=== PATIENT | female | born 1950 | race American Indian/Alaskan Native ===

== ENCOUNTER 2022-01-04 16:21 | Observation (INO) | payer MEDICARE, OTHER ==
[2022-01-04] MEDS ORDERED: PANTOPRAZOLE 40 MG INJ IV ONE (17:07)
[2022-01-04] MEDS ORDERED: ACETAMINOPHEN 325 MG TAB PO ONE (17:07)
[2022-01-04] MEDS ORDERED: diphenhydrAMINE 50 MG/ML VIAL IV ONE (17:07)
[2022-01-04] MEDS ORDERED: METOCLOPRAMIDE 10 MG/2 ML INJ IV ONE (17:07)
--- NOTE | 2022-01-04 17:08 | Emergency Department Report ---
ED General Adult HPI - General Chief complaint: Syncope Stated complaint: I passed out Time Seen by Provider: 01/04/22 17:06 Source: patient, EMS (Verbal report received from emergency medical services. EMS documentation not available at time of chart dictation ), RN notes reviewed Mode of arrival: Stretcher Limitations: No Limitations - History of Present Illness Initial comments: The patient was evaluated in the emergency department for symptoms described in the history of present illness. He/she was evaluated in the context of the global COVID-19 pandemic, which necessitated consideration that the patient might be at risk for infection with the virus that causes COVID-19. Institutional protocols and algorithms that pertain to the evaluation of patients at risk for COVID-19 are in a state of rapid change based on information released by regulatory bodies including the CDC and federal and state organizations. These policies and algorithms were followed during the patient's care in the emergency department. Please note that these policies, procedures and recommendations changed on a rapid basis. This is a 71-year-old female, with a history of TIA, hypertension, obesity, diabetes which is diet-controlled. She presents to the department today with EMS with an EMS articulated complaint of loss of consciousness. The patient was at an outside buffet, and reportedly had a nontraumatic spontaneous loss of consciousness. EMS reports unremarkable Accu-Chek in the field, negative Delphi stroke scale, and unremarkable vital signs in the field. Patient herself endorses that she has chronic headaches, and yesterday evening, experienced a frontal and bitemporal headache, which was not sudden or thunderclap in nature, not maximal in intensity, not described as the worst headache of her life (patient reports having had a worst headache a few years ago), and went to bed. This morning, reportedly did not eat much of breakfast, and then went to buffet, and reportedly had loss of consciousness. There is no loss of vision, there is no jaw claudication. There is chronic epigastric and left upper quadrant pressure and discomfort. The patient denies travel, surgery, immobilization, DVT and pulmonary embolism risk factors. No loss of vision, no neck pain, no lower abdominal pain, no diarrhea, no urinary symptoms. Patient reports that her medications have been changed and adjusted recently by her outpatient primary c are doctor, but she does not specifically recall what medication changes have taken place. She does feel like she is back to her baseline at this time. -: Gradual Location: head, abdomen Severity scale (0 -10): 0 Worsens with: none - Related Data Home Medications Medication Instructions Recorded Confirmed Last Taken Aspirin 81 mg PO DAILY 01/04/22 01/04/22 Unknown Atorvastatin 20 mg PO DAILY 01/04/22 01/04/22 Unknown Doxazosin 8 mg PO DAILY 01/04/22 01/04/22 Unknown Plavix 75 mg PO DAILY 01/04/22 01/04/22 Unknown Telmisartan 80 mg PO DAILY 01/04/22 01/04/22 Unknown amLODIPine 50 mg PO DAILY 01/04/22 01/04/22 Unknown hydrALAZINE 50 mg PO DAILY 01/04/22 01/04/22 Unknown Allergies Allergy/AdvReac Type Severity Reaction Status Date / Time Penicillins Allergy Unknown Verified 01/04/22 16:32 ED Review of Systems ROS: Stated complaint: SYNCOPAL Other details as noted in HPI Constitutional: denies: fever Eyes: denies: eye discharge, vision change Respiratory: denies: cough Cardiovascular: chest pain, syncope Gastrointestinal: abdominal pain Genitourinary: denies: dysuria Neurological: headache. denies: weakness Hematological/Lymphatic: denies: easy bleeding ED Past Medical Hx - Medications Home Medications: Home Medications Medication Instructions Recorded Confirmed Last Taken Type Aspirin 81 mg PO DAILY 01/04/22 01/04/22 Unknown History Atorvastatin 20 mg PO DAILY 01/04/22 01/04/22 Unknown History Doxazosin 8 mg PO DAILY 01/04/22 01/04/22 Unknown History Plavix 75 mg PO DAILY 01/04/22 01/04/22 Unknown History Telmisartan 80 mg PO DAILY 01/04/22 01/04/22 Unknown History amLODIPine 50 mg PO DAILY 01/04/22 01/04/22 Unknown History hydrALAZINE 50 mg PO DAILY 01/04/22 01/04/22 Unknown History ED Physical Exam - General Limitations: No Limitations General appearance: alert, in no apparent distress, obese - Head Head exam: Present: atraumatic, normocephalic, other (There is no temporal tenderness) - Eye Eye exam: Present: normal appearance, EOMI, other (Visual acuity is intact to finger counting and color perception at a close distance.). Absent: nystagmus - ENT ENT exam: Present: normal exam, normal orophraynx, mucous membranes moist, normal external ear exam - Neck Neck exam: Present: normal inspection, full ROM. Absent: tenderness, meningismus - Respiratory Respiratory exam: Present: normal lung sounds bilaterally. Absent: respiratory distress, wheezes, rales, rhonchi, stridor, decreased breath sounds - Cardiovascular Cardiovascular Exam: Present: normal rhythm, bradycardia, normal heart sounds. Absent: tachycardia, irregular rhythm, systolic murmur, diastolic murmur, rubs, gallop - GI/Abdominal GI/Abdominal exam: Present: soft. Absent: distended, tenderness, guarding, rebound, rigid, pulsatile mass - Extremities Exam Extremities exam: Present: normal inspection, full ROM, other (2+ pulses noted in the bilateral upper and lower extremities. There is no palpable cord. negative Homans sign. Muscular compartments are soft. The pelvis is stable.). Absent: pedal edema, calf tenderness - Back Exam Back exam: Present: normal inspection. Absent: tenderness, CVA tenderness (R), CVA tenderness (L), paraspinal tenderness, vertebral tenderness - Neurological Exam Neurological exam: Present: alert (There is no past-pointing. There is no pronator drift. There is normal [id number]), oriented X3, other (No facial droop. Tongue midline. Extraocular movements intact bilaterally. Facial sensation intact to light touch in V1, V2, V3 distribution bilaterally. 5 and a 5 strength in 4 extremities. Sensation intact to light touch in 4 extremi ties.). Absent: motor sensory deficit - Psychiatric Psychiatric exam: Present: normal affect, normal mood - Skin Skin exam: Present: warm, dry, intact, normal color. Absent: rash ED Course Vital Signs 01/04/22 16:21 Temperature 98.1 F Pulse Rate 56 L Respiratory 16 Rate Blood Pressure 150/73 [Left] O2 Sat by Pulse 95 Oximetry - Reevaluation(s) Reevaluation #1: 01/04/22 17:24 Differential diagnosis, including but not limited to: Orthostasis, vagal event, structural cardiac disease, electrolyte derangement, thyroid derangement, coronary artery disease, migraine headache, tension headache, cluster headache, vertebrobasilar migraine, intracranial hemorrhage, medication side effect Assessment and plan: 71-year-old female, who is who is pleasant, calm and cooperative, with a GCS of 15, NIH score of 0, who is not currently tachycardic, tachypneic or hypoxic, who denies DVT and pulmonary embolism risk factors, who is low risk by Wells criteria for pulmonary embolism, presenting with acute episode of episodic headache, which is chronic for her, without meningeal signs, without indication of temporal arteritis (no claudication, no loss of vision, no temporal pain currently), with unprovoked syncope. Place patient on bicycle technician, obtain appropriate laboratory studies, x-ray the chest, noncontrast CT scan of the brain. Treat patient's symptoms, and have requested that home medications be reconciled. Patient is at moderate risk for major adverse cardiac event as per [place] syncope rule. Recommend admission to the medical service once initial ER diagnostics have resulted, for unprovoked syncope, with abnormal EKG. Reassess after initial data points. Patient is clinically sober at this time. The cervical spine is cleared through nexus and [place] c spine rule 01/04/22 17:34 Patient in no acute distress at this time. Daughter reported to nursing team that patient has been consuming 5-hour energy on an empty stomach. Do not suspect sympathomimetic toxicity at this time, given bradycardia 01/04/22 18:57 Patient resting comfortably at this time, and in no acute distress. She recently started hydralazine. Suspect orthostasis and headache likely secondary to hydralazine. Have recommended admission to the medical service for medical optimization, and observation. With the patient's permission and consent, discussed all test findings with herself and family members at the bedside. Patient is agreeable to admission and hospitalization. Do not clinically suspect acute pneumonia. Mild CHF is a possibility, especially as the patient is obese, and may have pulmonary hypertension and right-sided congestive heart failure. Lung sounds diminished, without crackles or rales, but we will start with low-dose Lasix. Patient is agreeable to intranasal lidocaine. Hospital physician is paged to arrange admission. Repeat neurologic examination is unchanged at this time 01/04/22 19:03 Dr Sylvain Jaeger to admit to [facility] appreciated ED Medical Decision Making - Lab Data Result diagrams: 01/04/22 17:15 01/04/22 17:15 Vital Signs 01/04/22 16:21 Temperature 98.1 F Pulse Rate 56 L Respiratory 16 Rate Blood Pressure 150/73 [Left] O2 Sat by Pulse 95 Oximetry - EKG Data -: EKG Interpreted by Sc EKG shows normal: sinus rhythm - EKG Data When compared to previous EKG there are: previous EKG unavailable 01/04/22 17:26 The EKG is interpreted at 17: 13 Sinus rhythm, rate 63 bpm. Left axis deviation, left anterior fascicular block. QTc 4 and 3 ms. There is poor R wave progression. Q waves noted in inferior leads. This is an abnormal EKG. This is not a STEMI there is left ventricular hypertrophy - Radiology Data Radiology results: pending, report reviewed, image reviewed CHEST 1 VIEW INDICATION: Upper abdominal pain with loss of consciousness. COMPARISON: None FINDINGS: SUPPORT DEVICES: None. HEART: Within normal limits. LUNGS/PLEURA: Elevation of the right hemidiaphragm with mild streaky airspace disease/probable layering effusion. Minimal streaky airspace disease also noted in the left midlung. ADDITIONAL FINDINGS: None. IMPRESSION: 1. Lung findings as above. Signer Name: Earl Flowers MD Signed: 01/04/2022 4:[address] HEAD WITHOUT CONTRAST INDICATION / CLINICAL INFORMATION: Headache last night with loss of consciousness tod. TECHNIQUE: All CT scans at this location are p erformed using CT dose reduction for ALARA by means of automated exposure control. COMPARISON: None available. FINDINGS: CEREBRAL/CEREBELLAR PARENCHYMA: The cerebral and cerebellar hemispheres are normal for age. No CT evidence for an acute or subacute territorial infarct. HEMORRHAGE: No acute intra-axial hemorrhage or extra-axial fluid collection. MASS: No mass or mass effect. VENTRICULAR SYSTEM: Normal in size and morphology for the patient's age. ORBITS: Normal as visualized. SOFT TISSUES/SKULL: No scalp hematoma or skull fracture. PARANASAL SINUSES/MASTOID AIR CELLS: Normal as visualized. IMPRESSION: 1. No acute intracranial process. Signer Name: Drake Andrade MD Signed: 01/04/2022 5:08 PM Workstation Name: [employer] Critical care attestation.: If time is entered above; I have spent that time in minutes in the direct care of this critically ill patient, excluding procedure time. ED Disposition Clinical Impression: Syncope, Headache, BMI greater than 40 Disposition: 09 ADMITTED INPATIENT Is pt being admited?: Yes Does the pt Need Aspirin: No Condition: Good Instructions: Syncope (ED) Referrals: PRIMARY CARE, [Primary Care Provider] - 3-5 Days
[2022-01-04] MEDS ORDERED: LIDOCAINE (4%) 40 MG/ML TOPICAL SOLN 50 ML BOTTLE TP ONE (17:09)
--- NOTE | 2022-01-04 17:42 | XRay Report ---
CHEST 1 VIEW INDICATION: Upper abdominal pain with loss of consciousness. COMPARISON: None FINDINGS: SUPPORT DEVICES: None. HEART: Within normal limits. LUNGS/PLEURA: Elevation of the right hemidiaphragm with mild streaky airspace disease/probable layeri ng effusion. Minimal streaky airspace disease also noted in the left midlung. ADDITIONAL FINDINGS: None. IMPRESSION: 1. Lung findings as above. Signer Name: Ealr Flowers MD Signed: 01/04/2022 5:38 PM Workstation Name: [email or web address]
[2022-01-04] MEDS ORDERED: SODIUM CHLORIDE 0.9% 500 ML 500 ML IV SCH (18:00)
--- NOTE | 2022-01-04 18:12 | Cat Scan Report ---
CT HEAD WITHOUT CONTRAST INDICATION / CLINICAL INFORMATION: Headache last night with loss of consciousness tod. TECHNIQUE: All CT scans at this location are performed using CT dose reduction for ALARA by means of automated exposure control. COMPARISON: None available. FINDINGS: CEREBRAL/CEREBELLAR PARENCHYMA: The cerebral and cerebellar hemispheres are normal for age. No CT shaji dence for an acute or subacute territorial infarct. HEMORRHAGE: No acute intra-axial hemorrhage or extra-axial fluid collection. MASS: No mass or mass effect. VENTRICULAR SYSTEM: Normal in size and morphology for the patient's age. ORBITS: Normal as visualized. SOFT TISSUES/SKULL: No scalp hematoma or skull fracture. PARANASAL SINUSES/MASTOID AIR CELLS: Normal as visualized. IMPRESSION: 1. No acute intracranial process. Signer Name: Drake Andrade MD Signed: 01/04/2022 6:08 PM Workstation Name: [email or web address]
[2022-01-04 18:29] LABS: Basophils # (Auto) 0.1 K/mm3 (0.0-0.1); Basophils % (Auto) 0.7 % (0.0-1.8); Eosinophils # (Auto) 0.1 K/mm3 (0.0-0.4); Eosinophils % (Auto) 0.6 % (0.0-4.3); Hematocrit 35.2 % (30.3-42.9); Lymphocytes # (Auto) 1.4 K/mm3 (1.2-5.4); Lymphocytes % (Auto) 15.7 % (13.4-35.0); Mean Corpuscular HGB Conc 31 % (30-34); Mean Corpuscular Volume 78 fl (79-97); Monocytes # (Auto) 0.4 K/mm3 (0.0-0.8); Monocytes % (Auto) 4.9 % (0.0-7.3); Platelet Count 431 K/mm3 (140-440); Red Cell Distribution Width 18.4 % (13.2-15.2)
[2022-01-04 18:43] LABS: Alanine Aminotransferase 15 units/L (7-56); BUN/Creatinine Ratio 16; Blood Urea Nitrogen 13 mg/dL (7-17); Hemolysis Index 2
[2022-01-04 18:49] LABS: INR 2.86 (0.87-1.13)
[2022-01-04] MEDS ORDERED: FUROSEMIDE 20 MG/2 ML INJ IV ONE (18:56)
[2022-01-04] MEDS ORDERED: MORPHINE 4 MG/1 ML INJ IV PRN (19:03)
[2022-01-04] MEDS ORDERED: METOCLOPRAMIDE 10 MG/2 ML INJ IV PRN (19:03)
[2022-01-04] MEDS ORDERED: ACETAMINOPHEN 325 MG TAB PO PRN ×2 (19:03→19:25)
[2022-01-04] MEDS ORDERED: NALOXONE 0.4 MG/1 ML INJ IV PRN (19:03)
[2022-01-04] MEDS ORDERED: MORPHINE 2 MG/1 ML INJ IV PRN ×2 (19:03→19:25)
[2022-01-04] MEDS ORDERED: ONDANSETRON 4 MG/2 ML INJ IV PRN (19:25)
[2022-01-04] MEDS ORDERED: TELMISARTAN 80 MG PO SCH (19:30)
[2022-01-04] MEDS ORDERED: NON-FORMULARY EACH (Hydralazine 50 MG) PO SCH (19:30)
[2022-01-04] MEDS ORDERED: NON-FORMULARY EACH (Amlodipine 10 MG) PO SCH (19:30)
[2022-01-04] MEDS ORDERED: CLOPIDOGREL 75 MG TAB PO SCH (19:30)
[2022-01-04] MEDS ORDERED: SODIUM CHLORIDE 0.9% 1000 ML 1,000 ML IV SCH (19:30)
[2022-01-04] MEDS ORDERED: NON-FORMULARY EACH (Aspirin 81 MG) PO SCH (19:30)
[2022-01-04] MEDS ORDERED: NON-FORMULARY EACH (Plavix 75 MG) PO SCH (19:30)
[2022-01-04] MEDS ORDERED: NON-FORMULARY EACH (Atorvastatin 20 MG) PO SCH (19:30)
[2022-01-04] MEDS ORDERED: DOXAZOSIN 4 MG TAB PO SCH (19:30)
[2022-01-04] MEDS ORDERED: DOXAZOSIN 8 MG PO SCH (19:30)
[2022-01-04] MEDS ORDERED: LOSARTAN 50 MG TAB PO SCH (19:30)
[2022-01-04] MEDS: hydrALAZINE 25 MG TAB PO SCH (23:51)
[2022-01-04] MEDS: FAMOTIDINE 20 MG TAB PO SCH (23:52)
[2022-01-05] MEDS: hydrALAZINE 25 MG TAB PO SCH (05:02)
[2022-01-05 05:52] LABS: Basophils % (Auto) 0.5 % (0.0-1.8); Eosinophils % (Auto) 0.4 % (0.0-4.3); Hematocrit 32.5 % (30.3-42.9); Hemoglobin 10.1 gm/dl (10.1-14.3); Lymphocytes # (Auto) 2.2 K/mm3 (1.2-5.4); Lymphocytes % (Auto) 26.9 % (13.4-35.0); Mean Corpuscular HGB Conc 31 % (30-34); Mean Corpuscular Volume 78 fl (79-97); Monocytes # (Auto) 0.6 K/mm3 (0.0-0.8); Monocytes % (Auto) 6.9 % (0.0-7.3); Platelet Count 400 K/mm3 (140-440); Red Blood Count 4.17 M/mm3 (3.65-5.03); Red Cell Distribution Width 18.5 % (13.2-15.2)
[2022-01-05 06:06] LABS: Alanine Aminotransferase 13 units/L (7-56); Albumin 3.8 g/dL (3.9-5); BUN/Creatinine Ratio 14; Blood Urea Nitrogen 13 mg/dL (7-17); Calcium 9.9 mg/dL (8.4-10.2); Hemolysis Index 4
--- NOTE | 2022-01-05 07:07 | History and Physical Report ---
History of Present Illness Date of examination: 01/04/22 Date of admission: 01/04/22 19:03 Chief complaint: Passed out while standing. History of present illness: 71-year-old with history of hypertension, obesity and diet-controlled diabetes brought in by EMS for apparently passing out while standing. Patient was having a buffet lunch. Patient was standing and felt lightheaded and passed out. Brief loss of consciousness for couple seconds. No seizures. No chest pain. No diaphoresis. Patient was recently started on hydralazine for control of her blood pressure. Patient attributes her syncope to hydralazine. No nausea or vomiting. No fever or chills. Patient also has inframammary intermittent chest pain for 6 months. No exacerbating or relieving factors. Review of Systems ROS: Stated complaint: SYNCOPAL Other details as noted in HPI Constitutional: denies: fever Eyes: denies: eye discharge, vision change Respiratory: denies: cough Cardiovascular: chest pain, syncope Gastrointestinal: abdominal pain Genitourinary: denies: dysuria Neurological: headache. denies: weakness Hematological/Lymphatic: denies: easy bleeding Past History Past Medical History: diabetes, hypertension, hyperlipidemia Past Surgical History: cholecystectomy, , hysterectomy Social history: lives with family, full code Family history: hypertension Medications and Allergies Allergies Allergy/AdvReac Type Severity Reaction Status Date / Time Penicillins Allergy Unknown Verified 01/04/22 16:32 Home Medications Medication Instructions Recorded Confirmed Last Taken Type Aspirin 81 mg PO DAILY 01/04/22 01/04/22 Unknown History Atorvastatin 20 mg PO DAILY 01/04/22 01/04/22 Unknown History Doxazosin 8 mg PO DAILY 01/04/22 01/04/22 Unknown History Plavix 75 mg PO DAILY 01/04/22 01/04/22 Unknown History Telmisartan 80 mg PO DAILY 01/04/22 01/04/22 Unknown History amLODIPine 50 mg PO DAILY 01/04/22 01/04/22 Unknown History hydrALAZINE 50 mg PO DAILY 01/04/22 01/04/22 Unknown History Active Meds: Active Medications Acetaminophen (Acetaminophen 325 Mg Tab) 650 mg PO Q4H PRN PRN Reason: Pain MILD(1-3)/Fever >100.5/VILLAFANA Last Admin: 01/04/22 23:50 Dose: 650 mg Acetaminophen (Acetaminophen 325 Mg Tab) 650 mg PO Q4H PRN PRN Reason: Pain MILD(1-3)/Fever >100.5/VILLAFANA Atorvastatin Calcium (Atorvastatin 20 Mg Tab) 20 mg PO QHS [facility] Last Admin: 01/04/22 23:52 Dose: 20 mg Clopidogrel Bisulfate (Clopidogrel 75 Mg Tab) 75 mg PO QDAY [facility] Doxazosin Mesylate (Doxazosin 4 Mg Tab) 8 mg PO QDAY [facility] Famotidine (Famotidine 20 Mg Tab) 20 mg PO BID [facility] Last Admin: 01/04/22 23:52 Dose: 20 mg Hydralazine HCl (Hydralazine 25 Mg Tab) 50 mg PO Q8HR [facility] Last Admin: 01/05/22 05:02 Dose: 50 mg Sodium Chloride (Nacl 0.9% 1000 Ml) 1,000 mls @ 42 mls/hr IV DIRECT [facility] Last Admin: 01/05/22 00:31 Dose: 42 mls/hr Losartan Potassium (Losartan 50 Mg Tab) 50 mg PO QDAY [facility] Metoclopramide HCl (Metoclopramide 10 Mg/2 Ml Inj) 10 mg IV Q6H PRN PRN Reason: Nausea And Vomiting Miscellaneous Medication (Amlodipine) 10 mg PO DAILY [facility] Miscellaneous Medication (Aspirin) 81 mg PO DAILY [facility] Miscellaneous Medication (Atorvastatin) 20 mg PO DAILY [facility] Miscellaneous Medication (Doxazosin) 8 mg PO DAILY [facility] Morphine Sulfate (Morphine 2 Mg/1 Ml Inj) 2 mg IV Q4H PRN PRN Reason: Pain, Moderate (4-6) Naloxone HCl (Naloxone 0.4 Mg/1 Ml Inj) 0.1 mg IV Q2MIN PRN PRN Reason: Res Rate </= 8 or 02 SAT < 92% Ondansetron HCl (Ondansetron 4 Mg/2 Ml Inj) 4 mg IV Q8H PRN PRN Reason: Nausea And Vomiting Sodium Chloride (Sodium Chloride 0.9% 10 Ml Flush Syringe) 10 ml IV BID [facility] Last Admin: 01/04/22 23:58 Dose: 10 ml Sodium Chloride (Sodium Chloride 0.9% 10 Ml Flush Syringe) 10 ml IV PRN PRN PRN Reason: LINE FLUSH Sodium Chloride (Sodium Chloride 0.9% 10 Ml Flush Syringe) 10 ml IV BID [facility] Sodium Chloride (Sodium Chloride 0.9% 10 Ml Flush Syringe) 10 ml IV PRN PRN PRN Reason: LINE FLUSH Exam - Constitutional Vitals: Temp Pulse Resp BP Pulse Ox 98.4 F 71 18 182/66 95 01/05/22 03:50 01/05/22 05:02 01/05/22 03:50 01/05/22 05:02 01/05/22 03:50 General appearance: Present: no acute distress, well-nourished - EENT Eyes: Present: PERRL ENT: hearing intact, clear oral mucosa - Neck Neck: Present: supple, normal ROM - Respiratory Respiratory effort: normal Respiratory: bilateral: CTA - Cardiovascular Heart rate: 78 Rhythm: regular Heart Sounds: Present: S1 & S2. Absent: rub, click - Extremities Extremities: pulses symmetrical, No edema Peripheral Pulses: within normal limits - Abdominal General gastrointestinal: Present: soft, non-tender, non-distended, normal bowel sounds Female genitourinary: Present: normal - Integumentary Integumentary: Present: clear, warm, dry - Musculoskeletal Musculoskeletal: gait normal, strength equal bilaterally - Psychiatric Psychiatric: appropriate mood/affect, intact judgment & insight - Neurologic Neurologic: CNII-XII intact, moves all extremities HEART Score - HEART Score History: Moderately suspicious Age: > 65 Risk factors: 1-2 risk factors Troponin: Troponin T < 0.010 ng/mL (0.00-0.029) 01/04/22 17:15 Troponin: < normal limit - Critical Actions Critical Actions: 0-3 pts:0.9-1.7%risk of adverse cardiac event.Candidate for discharge Results - Labs CBC & Chem 7: 01/05/22 05:24 01/05/22 05:24 Labs: Laboratory Last Values WBC 8.2 K/mm3 (4.5-11.0) 01/05/22 05:24 RBC 4.17 M/mm3 (3.65-5.03) 01/05/22 05:24 Hgb 10.1 gm/dl (10.1-14.3) 01/05/22 05:24 Hct 32.5 % (30.3-42.9) 01/05/22 05:24 MCV 78 fl (79-97) L 01/05/22 05:24 MCH 24 pg (28-32) L 01/05/22 05:24 MCHC 31 % (30-34) 01/05/22 05:24 RDW 18.5 % (13.2-15.2) H 01/05/22 05:24 Plt Count 400 K/mm3 (140-440) 01/05/22 05:24 Lymph % (Auto) 26.9 % (13.4-35.0) 01/05/22 05:24 [place] % (Auto) 6.9 % (0.0-7.3) 01/05/22 05:24 Eos % (Auto) 0.4 % (0.0-4.3) 01/05/22 05:24 Baso % (Auto) 0.5 % (0.0-1.8) 01/05/22 05:24 Lymph # (Auto) 2.2 K/mm3 (1.2-5.4) 01/05/22 05:24 [place] # (Auto) 0.6 K/mm3 (0.0-0.8) 01/05/22 05:24 Eos # (Auto) 0.0 K/mm3 (0.0-0.4) 01/05/22 05:24 Baso # (Auto) 0.0 K/mm3 (0.0-0.1) 01/05/22 05:24 Seg Neutrophils % 65.3 % (40.0-70.0) 01/05/22 05:24 Seg Neutrophils # 5.4 K/mm3 (1.8-7.7) 01/05/22 05:24 PT 33.8 Sec. (12.2-14.9) H 01/04/22 17:15 INR 2.86 (0.87-1.13) H 01/04/22 17:15 Sodium 140 mmol/L (137-145) 01/05/22 05:24 Potassium 4.5 mmol/L (3.6-5.0) 01/05/22 05:24 Chloride 106.2 mmol/L (98-107) 01/05/22 05:24 Carbon Dioxide 25 mmol/L (22-30) 01/05/22 05:24 Anion Gap 13 mmol/L 01/05/22 05:24 BUN 13 mg/dL (7-17) 01/05/22 05:24 Creatinine 0.9 mg/dL (0.6-1.2) 01/05/22 05:24 Estimated GFR > 60 ml/min 01/05/22 05:24 BUN/Creatinine Ratio 14 % 01/05/22 05:24 Glucose 158 mg/dL (65-100) H 01/05/22 05:24 Calcium 9.9 mg/dL (8.4-10.2) 01/05/22 05:24 Magnesium 1.80 mg/dL (1.7-2.3) 01/04/22 17:15 Total Bilirubin 0.30 mg/dL (0.1-1.2) 01/05/22 05:24 AST 11 units/L (5-40) 01/05/22 05:24 ALT 13 units/L (7-56) 01/05/22 05:24 Alkaline Phosphatase 123 units/L (35-129) 01/05/22 05:24 Total Creatine Kinase 86 units/L (30-135) 01/04/22 17:15 Troponin T < 0.010 ng/mL (0.00-0.029) 01/04/22 17:15 Total Protein 6.6 g/dL (6.3-8.2) 01/05/22 05:24 Albumin 3.8 g/dL (3.9-5) L 01/05/22 05:24 Albumin/Globulin Ratio 1.4 % 01/05/22 05:24 TSH 1.930 mlU/mL (0.270-4.200) 01/04/22 17:15 Plasma/Serum Alcohol < 0.01 % (0-0.07) 01/04/22 17:15 Short CBC 01/04/22 01/05/22 Range/Units 17:15 05:24 WBC 8.6 8.2 (4.5-11.0) K/mm3 Hgb 11.0 10.1 (10.1-14.3) gm/dl Hct 35.2 32.5 (30.3-42.9) % Plt Count 431 400 (140-440) K/mm3 BMP 01/04/22 01/05/22 17:15 05:24 Sodium 138 140 Potassium 4.2 4.5 Chloride 103.7 106.2 Carbon Dioxide 25 25 BUN 13 13 Creatinine 0.8 0.9 Glucose 231 H 158 H Calcium 10.0 9.9 Cardiac Enzymes 08/25/22 Range/Units 17:15 Total Creatine Kinase 86 (30-135) units/L Troponin T < 0.010 (0.00-0.029) ng/mL Liver Function 01/04/22 01/05/22 Range/Units 17:15 05:24 Total Bilirubin 0.30 0.30 (0.1-1.2) mg/dL AST 13 11 (5-40) units/L ALT 15 13 (7-56) units/L Alkaline Phosphatase 138 H 123 (35-129) units/L Albumin 4.0 3.8 L (3.9-5) g/dL - Imaging and Cardiology EKG: report reviewed (Normal sinus rhythm, nonspecific ST-T wave changes) Chest x-ray: report reviewed (No acute findings) CT Scan - head: report reviewed (No acute findings) Assessment and Plan Advance Directives: Yes (Full code) VTE prophylaxis?: Chemical Plan of care discussed with patient/family: Yes - Patient Problems (1) Syncope Current Visit: Yes Status: Acute Qualifiers: Syncope type: vasovagal syncope Qualified Code(s): R55 - Syncope and collapse Plan to address problem: Probably orthostatic Syncope work-up Echocardiogram and carotid duplex scan Serial troponins (2) Hypertension Current Visit: Yes Status: Chronic Qualifiers: Hypertension type: primary hypertension Qualified Code(s): I10 - Essential (primary) hypertension Plan to address problem: Continue antihypertensives and adjust medications (3) T2DM (type 2 diabetes mellitus) Current Visit: Yes Status: Chronic Qualifiers: Diabetes mellitus termite control service representative insulin use: without termite control service representative use Plan to address problem: Patient is not on any hypoglycemics Patient states that her diabetes is diet controlled Her blood glucose levels have been high in the emergency room We will start her on metformin and check her A1c Also Accu-Cheks before meals and at bedtime (4) DVT prophylaxis Current Visit: Yes Status: Acute Plan to address problem: Anticoagulation GI prophylaxis (5) Advance care planning Current Visit: Yes Status: Acute Plan to address problem: Disease education conducted, care plan discussed, diagnosis discussed, and prognosis discussed. Care plan +30 minutes. Patient acknowledges understanding. Patient is full code.
[2022-01-05] MEDS ORDERED: INSULIN LISPRO 100 UNIT/ML SUB-Q SCH (07:30)
[2022-01-05] MEDS ORDERED: metFORMIN 500 MG TAB PO SCH (08:00)
[2022-01-05] MEDS ORDERED: DOXAZOSIN 4 MG PO SCH (08:53)
[2022-01-05] MEDS ORDERED: DOXAZOSIN 4 MG TAB PO SCH (10:00)
[2022-01-05] MEDS ORDERED: hydrALAZINE 25 MG TAB PO SCH (10:00)
--- NOTE | 2022-01-05 10:38 | Electrocardiograph Report ---
[facility] Test Date: 2022-01-04 Test Time: 17:13:56 Pat Name: BRANDEN TAYLOR Department: Room: A485 1 Gender: F Video Coordinator: KYLEIGH : 1950 Requested By: RIKY CALZADA Order Number: [id number] Reading MD: Dayton Feldman Measurements Intervals Leonidas Rate: 63 P: 44 MO: 168 QRS: -13 QRSD: 92 T: 92 QT: 403 QTc: 413 Interpretive Statements Sinus rhythm Left ventricular hypertrophy nonspecific st-t Nonspecific T abnormalities, lateral leads No previous ECG available for comparison Electronically Signed On 01-05-2022 10:38:17 EDT by Dayton Feldman
--- NOTE | 2022-01-05 10:59 | Discharge Summary ---
Providers - Providers Date of Admission: 01/04/22 19:03 Date of discharge: 01/05/22 Attending physician: AMENA SUMMERS MD Primary care physician: [employer]NAGER Hospitalization Reason for admission: Vasovagal syncope Condition: Good Pertinent studies: Reviewed. Procedures: None. Hospital course: Patient is a 71-year-old female past medical history of prior TIA, hypertension, morbid obesity, ocq-yjxixvb-qrukowtam type 2 diabetes mellitus (diet controlled) who presented to the ED via EMS after syncopized being while out at a buffet with her family. Patient described not having any breakfast and only having a 5-hour energy drink until 3 PM when she arrived at the buffet. Patient also endorsed there being an increase in her antihypertensives recently (increasing doxazosin from 4 mg to 8 mg and initiation of p.o. hydralazine 50 mg twice daily). The patient endorsed having repeated symptoms of lightheadedness after attempting to sit back up after her original episode of syncope, but she endorsed feeling well when supine. On presentation to the ED, the patient was found to be hemodynamically stable. Patient currently believes that she is back at her baseline after receiving IV fluid resuscitation. The patient's labs were unremarkable. Patient was counseled about the importance of p.o. intake regularly throughout the day. Patient was also instructed that her antihypertensives would be decreased in order to ensure no further vasovagal syncope episodes. The patient expresses understanding. Patient is medically clear for discharge. Disposition: 01 HOME / SELF CARE / HOMELESS Final Discharge Diagnosis (Prints w/discharge instructions): Vasovagal syncope, hypertension, hyperlipidemia, morbid obesity, noninsulin-dependent type 2 diabetes mellitus. Time spent for discharge: 45 min Core Measure Documentation - Palliative Care Palliative Care/ Comfort Measures: Not Applicable - Core Measures Any of the following diagnoses?: none Exam - Constitutional Vitals: Temp Pulse Resp BP Pulse Ox 97.8 F 80 18 101/81 95 01/05/22 08:14 01/05/22 08:14 01/05/22 08:14 01/05/22 08:14 01/05/22 08:14 General appearance: Present: no acute distress, well-nourished, obese - EENT Eyes: Present: PERRL, EOM intact ENT: hearing intact, clear oral mucosa, dentition normal - Neck Neck: Present: supple, normal ROM - Respiratory Respiratory effort: normal Respiratory: bilateral: CTA - Cardiovascular Rhythm: regular Heart Sounds: Present: S1 & S2 - Extremities Extremities: no ischemia, pulses intact, pulses symmetrical, No edema, normal temperature, normal color, Full ROM Peripheral Pulses: within normal limits - Abdominal General gastrointestinal: Present: soft, non-tender, non-distended, normal bowel sounds Female genitourinary: Present: deferred - Rectal Rectal Exam: deferred - Integumentary Integumentary: Present: clear, warm, dry - Musculoskeletal Musculoskeletal: strength equal bilaterally - Psychiatric Psychiatric: appropriate mood/affect, intact judgment & insight, memory intact, cooperative - Neurologic Neurologic: CNII-XII intact, moves all extremities - Allied Health Allied health notes reviewed: nursing Plan Activity: advance as tolerated Diet: low salt, diabetic Additional Instructions: Patient is a 71-year-old female past medical history of prior TIA, hypertension, morbid obesity, web-nibjcrf-igpruvtda type 2 diabetes mellitus (diet controlled) who presented to the ED via EMS after syncopized being while out at a buffet with her family. Patient described not having any breakfast and only having a 5-hour energy drink until 3 PM when she arrived at the buffet. Patient also endorsed there being an increase in her antihypertensives recently (increasing doxazosin from 4 mg to 8 mg and initiation of p.o. hydralazine 50 mg twice daily). The patient endorsed having repeated symptoms of lightheadedness after attempting to sit back up after her original episode of syncope, but she endorsed feeling well when supine. On presentation to the ED, the patient was found to be hemodynamically stable. Patient currently believes that she is back at her baseline after receiving IV fluid resuscitation. The patient's labs were unremarkable. Patient was counseled about the importance of p.o. intake regularly throughout the day. Patient was also instructed that her antihypertensives would be decreased in order to ensure no further vasovagal syncope episodes. The patient expresses understanding. Patient is medically clear for discharge. Care Plan Goals: Patient is medically clear for discharge. Assessment: Patient is a 71-year-old female past medical history of prior TIA, hypertension, morbid obesity, wwb-jwrvhrb-[id number] type 2 diabetes mellitus (diet controlled) who presented to the ED via EMS after syncopized being while out at a buffet with her family. Patient described not having any breakfast and only having a 5-hour energy drink until 3 PM when she arrived at the buffet. Patient also endorsed there being an increase in her antihypertensives recently (increasing doxazosin from 4 mg to 8 mg and initiation of p.o. hydralazine 50 mg twice daily). The patient endorsed having repeated symptoms of lightheadedness after attempting to sit back up after her original episode of syncope, but she endorsed feeling well when supine. On presentation to the ED, the patient was found to be hemodynamically stable. Patient currently believes that she is back at her baseline after receiving IV fluid resuscitation. The patient's labs were unremarkable. Patient was counseled about the importance of p.o. intake regularly throughout the day. Patient was also instructed that her antihy pertensives would be decreased in order to ensure no further vasovagal syncope episodes. The patient expresses understanding. Patient is medically clear for discharge. Follow up with: PRIMARY CARE, [Primary Care Provider] - 3-5 Days Prescriptions: AtorvaSTATin [Lipitor] 20 mg PO QHS #30 tablet hydrALAZINE [Apresoline TAB] 25 mg PO Q12HR #60 tablet Doxazosin [Cardura] 4 mg PO QDAY #30 tablet metFORMIN [Glucophage] 500 mg PO BIDDIAB #60 tablet
[2022-01-05] MEDS ORDERED: amLODIPine 10 MG TAB PO SCH (11:00)
[2022-01-05] MEDS ORDERED: ASPIRIN EC 81 MG TAB PO SCH (11:00)
[2022-01-05] MEDS: FAMOTIDINE 20 MG TAB PO SCH (11:49)
[2022-01-05 11:59] VITALS: BP 161/74
== END 2022-01-05 12:20 | disposition home or self-care (01) ==
LOC: ED 16:21 → 4A 19:03 → OBSVTOIN 01-05 08:53 → INTOOBSV 01-05 08:53
PROVIDERS: ADMIT Internal Medicine; ATTEND Student in an Organized Health Care Education/Training Program
DX: R55 Syncope and collapse (principal); I10 Essential (primary) hypertension; E11.9 Type 2 diabetes mellitus without complications; E66.01 Morbid (severe) obesity due to excess calories; E78.5 Hyperlipidemia, unspecified; R51.9 Headache, unspecified; Z90.49 Acquired absence of other specified parts of digestive tract; Z90.710 Acquired absence of both cervix and uterus; Z98.891 History of uterine scar from previous surgery; Z79.899 Other long term (current) drug therapy; Z98.890 Other specified postprocedural states; Z79.82 Long term (current) use of aspirin; Z79.02 Long term (current) use of antithrombotics/antiplatelets; Z68.41 Body mass index [BMI] 40.0-44.9, adult
CPT/HCPCS: 36415; 70450; 71045; 80053; 82550; 82962; 83735; 84443; 84484; 85025; 85610; 93005; 96361; 96374; 96375; 99285; C9113; G0378; J1200; J2765; J3490; J7030; J7040; 80320; Q9967; G0480; J1815